=== PATIENT | female | born 1975 | race African-American/Black ===

== ENCOUNTER → 2017-02-25 | Outpatient (CLI) | payer OTHER ==
[~2017-02-25] MED LIST: CLARITIN 1010 MG/TAB PO; HCTZ 25MG TAB25 MG PO; NORVASC 10MG10 MG PO; PHENERGAN W/CO120 ML PO; PRENATAL1 TA1 PO; PRINZIDE 25 MG-1 TAB PO; TENORMIN 5050 MG/TAB PO; ZYRTEC10 MG PO
== END ==
LOC: MC.RAD 10:20
DX: Z12.31 Encounter for screening mammogram for malignant neoplasm of breast (principal)

== ENCOUNTER → 2019-03-26 | Outpatient (CLI) | payer MEDICAID | LOC: COL.PUL 08:00 | DX: R06.02 Shortness of breath (principal); R07.89 Other chest pain; Z87.891 Personal history of nicotine dependence ==

== ENCOUNTER → 2021-01-09 | Outpatient (CLI) | payer MEDICAID | LOC: MC.RAD 09:29 | DX: Z12.31 Encounter for screening mammogram for malignant neoplasm of breast (principal) ==

== ENCOUNTER 2022-01-25 05:51 | Day surgery (SDC) | payer MEDICAID ==
[~2022-01-25] VITALS: Ht 162.6 cm; Wt 121.7 kg
[2022-01-25 06:12] VITALS: BP 147/92; PULSE 79; TEMP 97
[2022-01-25] MEDS ORDERED: PRINZIDE 12.5 M1 TA1 PO (06:21)
[2022-01-25] MEDS ORDERED: KLOR-CON SPRIN10 MEQ PO (06:22)
[2022-01-25] MEDS ORDERED: PROVENTIL0.09 MG/A1 IH (06:22)
--- NOTE | 2022-01-25 07:23 | NUR ---
? Pt returns from endo procedure via cart and RN assist to [facility] ?. Pt ambulates from cart to recliner with RN assist. Monitors on and alarms set. Call light within reach. Report received from ?, RN. Pt alert and oriented. Pt requests ?. Pt denies any pain or nausea. ? Pt taking food and drink well. No complications noted. ? Discharge instructions given to pt. All questions answered to ? satisfaction. Handed to pt are a thank you card and discharge information. ? Pt transferred out of the hospital via wheelchair and ? assist, to private vehicle driven by ?.
[2022-01-25 07:35] VITALS: BP 125/78; PULSE 59; TEMP 97.1
[2022-01-25 07:45] VITALS: BP 119/70; PULSE 53
[2022-01-25 08:00] VITALS: BP 126/73; PULSE 53
--- NOTE | 2022-01-25 08:22 | NUR ---
0735 Pt returns from endo procedure via cart and RN assist to [facility]. Pt ambulates from cart to recliner with RN assist. Monitors on and alarms set. Call light within reach. Report received from YULIYA Lowry. Pt alert and oriented. Pt requests water and muffin. Pt denies any pain or nausea. 0745 Pt taking food and drink well. No complications noted. 0810 Discharge instructions given to pt. All questions answered to her satisfaction. Handed to pt are a thank you card and discharge information. 0822 Pt transferred out of the hospital via wheelchair and Ingrid assist, to private vehicle driven by family.
== END 2022-01-25 08:22 | disposition home or self-care (01) ==
LOC: SDCO 05:51
DX: Z12.11 Encounter for screening for malignant neoplasm of colon (principal); Z80.0 Family history of malignant neoplasm of digestive organs; Z87.891 Personal history of nicotine dependence
CPT/HCPCS: J2704; J3010; J7030

== ENCOUNTER 2022-02-15 10:17 | Outpatient (RCR) | payer MEDICAID ==
[~2022-02-15 10:17] MED LIST changes: +KLOR-CON SPRIN10 MEQ PO; +PRINZIDE 12.5 M1 TA1 PO; +PROVENTIL0.09 MG/A1 IH
== END 2022-02-16 ==
LOC: WSPT
DX: M54.50 Low back pain, unspecified (principal)

== ENCOUNTER 2022-03-11 15:45 | Outpatient (RCR) | payer MEDICAID | END 2022-03-19 | disposition still patient (30) | LOC: WSPT | DX: M54.50 Low back pain, unspecified (principal) ==

== ENCOUNTER 2022-05-02 15:31 | Outpatient (RCR) | payer MEDICAID | END 2022-05-19 | disposition home or self-care (01) | LOC: WSPT | DX: M54.50 Low back pain, unspecified (principal) ==